=== PATIENT | female | born 1970 | race Caucasian/White ===

== ENCOUNTER 2019-03-24 23:21 | Emergency (ER) | payer MEDICAID ==
[2019-03-24 23:44] LABS: ADD MAN DIFF? NO
[2019-03-24] MEDS: SODIUM CHLORIDE 0.9% 1L BAG IV* (23:44)
[2019-03-24] MEDS: PIPER-TAZO 3.375 GM IV (PMX) 100 ML IVPB (23:47)
[2019-03-24] MEDS: ONDANSETRON 4 MG INJ IV (23:47)
[2019-03-24] MEDS: morphine 4 MG/ML VIAL IV (23:47)
[2019-03-24 23:48] LABS: WHITE BLOOD COUNT 12.8 10^3/ul (4.8-10.8)
[2019-03-24 23:48] LABS: BASOPHILS % 0.3 % (0.0-2.0); EOSINOPHILS % 0.2 % (0.0-7.0); HEMATOCRIT 37.7 % (37.0-47.0); HEMOGLOBIN 12.7 g/dl (12.0-16.0); LYMPHOCYTES # 1.4 10^3/ul (0.8-2.9); LYMPHOCYTES % 10.8 % (15.0-51.0); MEAN CORPUSCULAR HEMOGLOBIN 28.3 pg (29.0-33.0); MEAN CORPUSCULAR HGB CONC 33.7 g/dl (32.0-37.0); MEAN PLATELET VOLUME 8.5 fl (7.4-10.4); MONOCYTE # 0.6 10^3/ul (0.3-0.9); MONOCYTES % 4.5 % (0.0-11.0); NEUTROPHIL # 10.7 10^3/ul (1.6-7.5); NEUTROPHILS % 83.7 % (39.0-77.0); PLATELET COUNT 319 10^3/UL (140-415); RED BLOOD COUNT 4.49 10^6/ul (4.20-5.40); RED CELL DISTRIBUTION WIDTH 12.7 % (11.5-14.5)
[2019-03-24] MEDS: ACETAMINOPHEN 325 MG TAB PO (23:48)
[2019-03-25 00:08] LABS: INR 0.96; PROTIME 12.9 Sec (11.9-14.9)
[2019-03-25 00:09] LABS: ALANINE AMINOTRANSFERASE 50 IU/L (13-69); ALBUMIN 4.5 g/dl (3.3-4.9); ALBUMIN/GLOBULIN RATIO 1.21; ALKALINE PHOSPHATASE 117 IU/L (42-121); ANION GAP 13 (5-13); ASPARTATE AMINO TRANSFERASE 30 IU/L (15-46); BILIRUBIN,INDIRECT 0.2 mg/dl (0-1.1); BILIRUBIN,TOTAL 0.2 mg/dl (0.2-1.3); BLOOD UREA NITROGEN 9 mg/dl (7-20); CARBON DIOXIDE 24 mmol/L (21-31); CHLORIDE 101 mmol/L (97-110); CREATININE 0.66 mg/dl (0.44-1.00); Estimated GFR > 60 mL/min (>60); GLUCOSE 133 mg/dl (70-220); LIPASE 43 U/L (23-300); PARTIAL THROMBOPLASTIN TIME 27.7 Sec (23.0-35.0); POTASSIUM 3.4 mmol/L (3.5-5.1); SODIUM 138 mmol/L (135-144); TOTAL PROTEIN 8.2 g/dl (6.1-8.1)
[2019-03-25 00:20] LABS: TROPONIN-I < 0.012 ng/ml (0.000-0.120)
[2019-03-25 01:46] LABS: LACTIC ACID 1.9 mmol/L (0.5-2.0)
[2019-03-25 03:49] LABS: ADD UMIC YES; UR ASCORBIC ACID NEGATIVE (NEGATIVE); UR BILIRUBIN (Dip) NEGATIVE (NEGATIVE); UR BLOOD (Dip) 2+ mg/dL (NEGATIVE); UR CLARITY CLEAR (CLEAR); UR COLOR COLORLESS (YELLOW); UR GLUCOSE (Dip) NEGATIVE (NEGATIVE); UR KETONES (Dip) NEGATIVE (NEGATIVE); UR LEUKOCYTE ESTERASE (Dip) NEGATIVE Leu/ul (NEGATIVE); UR NITRITE (Dip) NEGATIVE (NEGATIVE); UR RBC 4 /HPF (0-5); UR SPECIFIC GRAVITY (Dip) 1.006 (1.003-1.030); UR TOTAL PROTEIN (Dip) NEGATIVE (NEGATIVE); UR UROBILINOGEN (Dip) NEGATIVE (NEGATIVE); UR WBC 1 /HPF (0-5)
[2019-03-25 04:35] LABS: LACTIC ACID 1.4 mmol/L (0.5-2.0)
== END 2019-03-25 04:23 | disposition home or self-care (01) ==
LOC: E/R 03-25 04:23
DX: R10.32 Left lower quadrant pain (principal); R50.9 Fever, unspecified
CPT/HCPCS: 36415; 71045; 74176; 80053; 81001; 81025; 83605; 83690; 84484; 85025; 85610; 85730; 87040-91; 87086; 93005; 96361; 96365; 96375; 99285-25